=== PATIENT | female | born 1975 ===

== ENCOUNTER 2016-09-10 13:09 | Emergency (ER) | payer OTHER ==
[2016-09-10 13:17] VITALS: RESP 14
--- NOTE | 2016-09-10 13:43 | EDPHY ---
H & P Time Seen by Provider: 09/10/16 13:28 HPI/ROS: CHIEF COMPLAINT: Headache HISTORY OF PRESENT ILLNESS: The patient presents with 3 weeks of intermittent headaches. She does not have dizziness or ataxia or history of trauma. It is mostly on the right side and she says it is typically worse at night. No photophobia and not positional. Denies other ENT symptoms. Symptoms are mild, presents today because her family is worried she might be having a stroke. She did see her primary care physician at [place] earlier this week but did not receive but definite diagnosis, was given some type of pain medication injection that did not help a lot. She says pain is around 6/10 but defines 10 as labor. REVIEW OF SYSTEMS: Eye: no change in vision, no diplopia ENT: no sore throat Cardiac: no chest pain or syncope Pulmonary: no cough or SOB Abdomen: no vomiting, diarrhea, abdominal pain Musculoskeletal: no back pain Skin: no rash Neuro: HPI Constitutional: no fever : no urinary symptoms A comprehensive 10 point review of systems is otherwise negative aside from elements mentioned in the history of present illness. PAST MEDICAL HISTORY: Negative Social history: , family does not have headaches. Negative for family history of intracranial aneurysm or mass, or venous thromboembolism. General Appearance: Alert and conversant, cooperative. Eyes: No scleral icterus. Extraocular motion intact and no proptosis. ENT, Mouth: Normal mucous membranes. Normal pharynx and no trismus. No facial swelling or tenderness. Normal tympanic membranes. No sinus tenderness. Respiratory: Normal respiratory effort, breath sounds equal, lungs are clear to auscultation. Cardiovascular: Regular rate and rhythm. Gastrointestinal: Abdomen is soft and non tender. Neurological: Alert and oriented x3. Normally conversant. Face symmetric, normal movement and sensation in all extremities. Normal [id number] and no pronator drift and negative Romberg. Skin: Warm and dry, no rashes. Musculoskeletal: Neck supple with normal range of motion and no meningeal signs. Psychiatric: Not agitated. Emergency Department course/MDM: Pain medications declined, discussed head CT and consented as screening test. Results discussed with the patient. Negative screening cranial imaging. I think that ENT infection is unlikely. She does not have presentation to suggest temporal arteritis. Encouraged to follow up with her primary care provider at [place], given copies of the imaging study. Smoking Status: Never smoked Constitutional: Initial Vital Signs Temperature (C) 36.6 C 09/10/16 13:15 Heart Rate 65 09/10/16 13:15 Respiratory Rate 14 09/10/16 13:15 Blood Pressure 120/62 09/10/16 13:15 O2 Sat (%) 94 09/10/16 13:15 O2 Delivery Mode Room Air Allergies/Adverse Reactions: No Known Allergies Allergy (Unverified 09/10/16 13:15) Home Medications: Medication Instructions Recorded NK [No Known Home Meds] 09/10/16 Medical Decision Making - Diagnostics Imaging Results: Negative noncontrast head CT. Discussed with Dr. Chaudhry at 2:08 p.m. who agrees. Imaging: I viewed and interpreted images myself Differential Diagnosis: Differential diagnosis considered for headache including but not limited to subarachnoid hemorrhage, migraine headache, tension headache and infectious causes such as meningitis, pharyngitis and sinusitis. I think carbon monoxide poisoning would also be unlikely. Departure - Departure Disposition: Home, Routine, Self-Care Clinical Impression: Headache Qualifiers: Headache type: unspecified Headache chronicity pattern: acute headache Intractability: not intractable Qualified Code(s): R51 - Headache Condition: Good Instructions: Acute Headache (ED) Referrals: [facility] ,. [Edm Groups for Call Sched] - As per Instructions
[2016-09-10 14:11] VITALS: BP 113/50; PULSE 53; TEMP 98.6; O2SAT 95
== END 2016-09-10 14:21 | disposition home or self-care (01) ==
DX: R51 Headache (principal)